=== PATIENT | female | born 1975 | race Caucasian/White ===

== ENCOUNTER → 2020-09-06 | Outpatient (CLI) | payer BC ==
[~2020-09-06] MED LIST: BIOTIN5000 MCG PO; CYCL10 PO; Cranberry300 MG PO; ERGO50000 PO; Flonase 0.05% N16 GM; IBUP400 PO; LEVSOD100; LEVSOD125 PO; LEVSOD137 PO; METF500 PO; Mirena1 EACH VG; OMEP20ER; PROBIOTIC1 EAC1; PROBIOTIC1 EAC1 PO; RANI150; RXLORA1 PO; Synthroid112 MCG PO; VITAMIN D350000 UNIT PO; ZYRTEC10 M2 PO
== END | disposition home or self-care (01) ==
LOC: LAB SHORT 07:38
DX: D48.5 Neoplasm of uncertain behavior of skin (principal); B07.9 Viral wart, unspecified
CPT/HCPCS: 88304